=== PATIENT | male | born 1990 | race Caucasian/White ===

== ENCOUNTER 2016-10-30 16:38 | Inpatient (IN) | payer SELFPAY ==
--- NOTE | 2016-10-30 17:27 | EDPHY ---
H & P Stated Complaint: Flu like sxs ~ 10 days;productive cough - Personal History Current Tetanus Diphtheria and Acellular Pertussis (TDAP): Yes - Medical/Surgical History Hx Asthma: No Hx Chronic Respiratory Disease: No Hx Diabetes: No Hx Cardiac Disease: No Hx Renal Disease: No Hx Cirrhosis: No Hx Alcoholism: No Hx HIV/AIDS: No Hx Splenectomy or Spleen Trauma: No Other PMH: add, anxiety - Social History Smoking Status: Current every day smoker Time Seen by Provider: 10/30/16 17:08 HPI/ROS: CHIEF COMPLAINT: " I feel like shit", 10 days of URI symptoms HISTORY OF PRESENT ILLNESS: 26-year-old male history of IV and oral heroin use , no primary care provider, complaining of 10 days productive cough, fever, chills, myalgias, sore throat, dyspnea. No medical evaluation. No abdominal pain. No nausea or vomiting. No rash. No influenza vaccination. PRIMARY CARE PROVIDER:none REVIEW OF SYSTEMS: A ten point review of systems was performed and is negative with the exception of the items mentioned in the HPI PAST MEDICAL & SURGICAL HISTORY: No pertinent medical or surgical history SOCIAL HISTORY: history of IV and oral heroin use, last used approximately 5 hours ago PHYSICAL EXAM (Prior to examination, patient consented to physical exam, hands were washed and my usual and customary physical exam procedures followed) 1) GENERAL: Well-developed, well-nourished, alert and oriented. Appears to be in no acute distress. 2) HEAD: Normocephalic, atraumatic 3) HEENT: Pupils equal, round, reactive to light bilaterally. Sclera anicteric. Nasopharynx, oropharynx, clear, no lesions. No tonsillar enlargement tonsillar exudates Ears bilaterally with normal tympanic membranes. 4) NECK: Full range of motion, no meningeal signs. 5) LUNGS: bibasilar rales, no retractions or accessory muscle use . 6) HEART: Regular rate and rhythm, blowing holosystolic murmur . 7) ABDOMEN: No guarding, no rebound, no focal tenderness,, 8) MUSCULOSKELETAL: Moving all extremities, no focal areas of tenderness, no obvious trauma. No peripheral edema or discoloration. 9) BACK: No CVA tenderness. 10) SKIN: No rash, no petechiae. 11) Psychiatric: Patient is oriented X 3, there is no agitation. DIFFERENTIAL DIAGNOSIS: in no particular distress and a limited to pneumonia, sepsis, endocarditis (Brynn Katz) Constitutional: Initial Vital Signs Temperature (C) 37.7 C 10/30/16 16:41 Heart Rate 93 10/30/16 16:41 Respiratory Rate 20 10/30/16 16:41 Blood Pressure 108/60 10/30/16 16:41 O2 Sat (%) 84 L 10/30/16 16:41 O2 Delivery Mode Room Air O2 (L/minute) 2 Allergies/Adverse Reactions: Penicillins Allergy (Unknown, Verified 10/30/16 16:50) "bad reaction" Home Medications: Medication Instructions Recorded Vitamin B Complex [B Complex] 1 each PO DAILY 10/30/16 Acetaminophen [Tylenol 325mg (*)] 650 mg PO Q4HRS PRN #0 tab 11/01/16 Oseltamivir Phosphate [Tamiflu 75 75 mg PO BIDMEAL #4 cap 11/01/16 mg (*)] guaiFENesin [Mucinex 600 MG (*)] 1,200 mg PO BID tab.er 11/01/16 levOFLOXACIN [levAQUIN (*)] 750 mg PO DAILY #5 tab 11/01/16 Medical Decision Making - Diagnostics Imaging Results: Images reviewed by myself (Brynn Katz) ED Course/Re-evaluation: 5:35 p.m.: Discussed case with secondary to superimposition Dr. Lamar Pang. Patient with URI symptoms, bibasilar rales, bilateral pneumonia on chest x- ray and saturations of 84% on room air, currently 94% on 2 L of oxygen. Recommended admission, IV antibiotics which he is agreeable with. 5:50 p.m.: Consultation with Dr. Jarek Agee hospitalist who will admit patient . Patient also seen and examined by secondary supervising physician Dr. Lamar Pang (Brynn Katz) Other Provider: I have evaluated and participated in the management of this patient. My co- signature indicates that I have reviewed this chart and that I agree with the findings and the plan of care as documented. My personal history and physical findings include: 26-year-old with history of IV drug abuse who presents with 2 days of cough and chest pain. Pulse oximetry was 84% on room air. At the time of my evaluation he was on 2 L nasal cannula with oxygen saturations in the low 90s. He was not febrile or tachypneic. Heart has a regular rate and rhythm. Lungs have coarse rhonchi throughout. Abdomen is soft and nontender, no masses. Bilateral upper extremity track thomson. Right posterior lateral neck with a 1 cm diameter scabbed area ringed with erythema, no fluctuance. Awake, alert, moving all extremities spontaneously in easily. Chest x-ray shows bilateral multilobar infiltrates. He received IV Levaquin. Blood cultures have been obtained. (Lamra Pang) - Data Points Laboratory Results: Laboratory Results 10/31/16 08:58 10/31/16 08:58 Microbiology Results: MICROBIOLOGY 10/30/16 21:15 Sputum, Expectorated - Final 10/30/16 21:15 Sputum, Expectorated Sputum Culture - Final 10/30/16 17:30 Blood Blood Culture - Preliminary 10/30/16 17:38 Blood Blood Culture - Preliminary Medications Given: Discontinued Medications Acetaminophen (Tylenol) 650 mg PO Q4HRS PRN PRN Reason: Pain, Mild/Fever, Can Take PO Stop: 04/28/17 18:49 Last Admin: 10/30/16 23:29 Dose: 650 mg Albuterol/Ipratropium (Duoneb) 3 ml IH EDNOW ONE Stop: 10/30/16 17:32 Last Admin: 10/30/16 17:58 Dose: 3 ml Albuterol/Ipratropium (Duoneb) 3 ml IH QID ALONZO Stop: 04/28/17 20:59 Last Admin: 11/01/16 05:39 Dose: Not Given Enoxaparin Sodium (Lovenox) 40 mg SC DAILY [facility] Stop: 04/29/17 15:59 Last Admin: 11/01/16 07:40 Dose: Not Given Guaifenesin (Mucinex) 1,200 mg PO BID [facility] Stop: 04/28/17 20:59 Last Admin: 11/01/16 07:38 Dose: 1,200 mg Levofloxacin/Dextrose (Levaquin 750 Mg (Premix)) 150 mls @ 100 mls/hr IV DAILY ALONZO PRN Reason: Protocol Stop: 11/29/16 17:59 Last Admin: 10/30/16 18:00 Dose: 150 mls Levofloxacin/Dextrose (Levaquin 750 Mg (Premix)) 150 mls @ 100 mls/hr IV DAILY@ 1800 ALONZO PRN Reason: Protocol Stop: 11/30/16 17:59 Last Admin: 10/31/16 17:58 Dose: 150 mls Sodium Chloride (Ns) 1,000 mls @ 3,000 mls/hr IV ONCE ONE Stop: 10/30/16 23:54 Last Admin: 10/30/16 23:50 Dose: 1,000 mls Oseltamivir Phosphate (Tamiflu) 75 mg PO BIDMEAL ALONZO Stop: 11/04/16 08:01 Last Admin: 11/01/16 07:39 Dose: 75 mg Oxycodone HCl (Oxycodone Ir) 10 - 15 mg PO Q3HRS PRN PRN Reason: Pain, Severe Able to Take PO Stop: 11/09/16 18:49 Last Admin: 11/01/16 10:48 Dose: 10 mg Departure - Departure Disposition: [facility] Inpatient Acute Clinical Impression: Heroin abuse Pneumonia Qualifiers: Pneumonia type: due to other aerobic Gram-negative bacteria Laterality: bilateral Lung location: lower lobe of lung Qualified Code(s): J15.6 - Pneumonia due to other aerobic Gram-negative bacteria Condition: Fair
[2016-10-30] MEDS ORDERED: IPRATROPIUM/ALBUTEROL 3 ML DEYVIAL IH ONE (17:31)
[2016-10-30 17:47] LABS: % IMMATURE GRANULYOCYTES 0.8 % (0.0-1.1); ABSOLUTE IMMATURE GRANULOCYTES 0.06 10^3/uL (0.00-0.10); ADD DIFF? NO; ADD MORPH? NO; ADD SCAN? YES; FRAGMENT RBC FLAG 0 (0-99); HEMATOCRIT 40.7 % (40.0-51.0); HEMOGLOBIN 14.3 g/dL (13.7-17.5); LIPEMIA HEMOLYSIS FLAG 90 (0-99); MEAN CELL HEMOGLOBIN 31.1 pg (27.9-34.1); MEAN CELL HEMOGLOBIN CONCENTR. 35.1 g/dL (32.4-36.7); MEAN CELL VOLUME 88.5 fL (81.5-99.8); MEAN PLATELET VOLUME 10.4 fL (8.7-11.7); PLATELET CLUMPS FLAG 0 (0-99); PLATELET COUNT 151 10^3/uL (150-400); RED CELL DISTRIBUTION WIDTH 12.3 % (11.5-15.2)
[2016-10-30 17:48] LABS: ATYPICAL LYMPHOCYTE FLAG 120 (0-99); LEFT SHIFT FLG 230 (0-99)
[2016-10-30 18:01] LABS: ANION GAP 11 mEq/L (8-16); BILIRUBIN,TOTAL 1.9 mg/dL (0.1-1.4); CALCIUM 8.7 mg/dL (8.5-10.4); CARBON DIOXIDE 27 mEq/l (22-31); CHLORIDE 92 mEq/L (97-110); CREATININE 1.1 mg/dL (0.7-1.3); GLOMERULAR FILTRATION RATE > 60; GLUCOSE 99 mg/dL (70-100); SODIUM 130 mEq/L (134-144)
[2016-10-30] MEDS ORDERED: ONDANSETRON 4 MG/2 ML VIAL IVP PRN (18:50)
[2016-10-30] MEDS ORDERED: ACETAMINOPHEN 325 MG TAB PO PRN (18:50)
[2016-10-30] MEDS ORDERED: ONDANSETRON DISINTEGRATING 4 MG TAB PO PRN (18:50)
[2016-10-30] MEDS ORDERED: NS 1,000 ML IV SCH (19:00)
[2016-10-30 19:07] LABS: SCAN POSITIVE
[2016-10-30 19:12] LABS: PLATELET ESTIMATE ADEQUATE (ADEQ)
[2016-10-30 19:17] LABS: POLYCHROMASIA 1+
--- NOTE | 2016-10-30 19:22 | GHP ---
[f rep st] HISTORY AND PHYSICAL DATE OF ADMISSION: 10/30/2016 CHIEF COMPLAINT: Cough. HISTORY OF PRESENT ILLNESS: This is a 26-year-old man who is addicted to opioids, who presents with a cough. Says he has been sick for about 10 days. All of his friends are also sick. Got very much worse about 3 days ago, and acutely worse today. He has felt somewhat short of breath. He has had diffuse myalgias. He has had some fevers. He thinks the symptoms were worsened when he had to walk about 5 miles in the [facility]. PAST MEDICAL/SURGICAL HISTORY: 1. Opiate abuse, currently not using IV opiates. 2. Believes he has hepatitis C. MEDICATIONS: Please see medication reconciliation. ALLERGIES: Penicillin. SOCIAL HISTORY: Uses IV drugs. FAMILY HISTORY: His father was an alcoholic. REVIEW OF SYSTEMS: 10-point review of systems is conducted and is negative except per HPI. PHYSICAL EXAM: VITAL SIGNS: Blood pressure 108/60, heart rate 93, respiration rate 20, saturating initially 94% on room air. Temperature is 37.7. GENERAL: The patient is a pleasant man who appears mildly uncomfortable, otherwise, in no acute distress. HEENT: Normocephalic, atraumatic. CARDIOVASCULAR: Regular rate and rhythm. No murmurs, rubs, or gallops. PULMONARY: Diffuse rhonchi with some mild expiratory wheezes as well as some crackles. ABDOMEN: Soft, nontender, nondistended. SKIN: No rash. : No [place]. NEUROLOGIC: Alert and oriented x3. He is moving all extremities. PSYCHIATRIC: Normal mood and affect. LABS: CBC is currently pending. Lactate is 1.4. Sodium is 130. DATA: 1. I discussed with Chad Rios, we will admit to med/surg. 2. I personally viewed and interpreted his chest x-ray. This shows a diffuse multifocal pneumonia. IMPRESSION AND PLAN: A 26-year-old man with opiate addiction, presents with a pneumonia. 1. Pneumonia: Community-acquired. He may have aspirated, given his overall history. White count is currently pending. He was hypoxic on presentation. Agree with Levaquin as written in the ED. Also, we will add albuterol, Mucinex. Check an influenza PCR. 2. Hypoxia: Suspect due to pneumonia. If does not resolve, would consider CT angiogram. 3. Opiate addiction: Says he has been eating heroin recently, not using it IV. Provide him with oxycodone for now to prevent him from getting sick. He is interested in cessation. 4. Suspected hepatitis C: He plans to get outpatient treatment. /[id number]/MODL MTDD
[2016-10-30] MEDS: oxyCODONE IR 5 MG TAB PO PRN ×2 (20:25→23:52)
[2016-10-30] MEDS: guaiFENesin 600 MG TAB.ER PO SCH (20:26)
[2016-10-30] MEDS: IPRATROPIUM/ALBUTEROL 3 ML DEYVIAL IH SCH (20:58)
[2016-10-30] MEDS ORDERED: NS 1,000 ML IV ONE (23:35)
[2016-10-31] MEDS: OSELTAMIVIR PHOSPHATE 75 MG CAP PO SCH ×3 (01:07→17:58)
[2016-10-31] MEDS: oxyCODONE IR 5 MG TAB PO PRN ×6 (03:56→22:47)
[2016-10-31] MEDS: IPRATROPIUM/ALBUTEROL 3 ML DEYVIAL IH SCH ×4 (06:01→22:09)
[2016-10-31] MEDS: guaiFENesin 600 MG TAB.ER PO SCH ×2 (08:30→20:26)
[2016-10-31 09:14] LABS: % IMMATURE GRANULYOCYTES 0.9 % (0.0-1.1); ABSOLUTE IMMATURE GRANULOCYTES 0.06 10^3/uL (0.00-0.10); ADD DIFF? NO; ADD MORPH? NO; ADD SCAN? YES; FRAGMENT RBC FLAG 0 (0-99); HEMATOCRIT 42.1 % (40.0-51.0); HEMOGLOBIN 14.4 g/dL (13.7-17.5); LIPEMIA HEMOLYSIS FLAG 90 (0-99); MEAN CELL HEMOGLOBIN 30.5 pg (27.9-34.1); MEAN CELL HEMOGLOBIN CONCENTR. 34.2 g/dL (32.4-36.7); MEAN CELL VOLUME 89.2 fL (81.5-99.8); MEAN PLATELET VOLUME 10.9 fL (8.7-11.7); PLATELET CLUMPS FLAG 10 (0-99); PLATELET COUNT 141 10^3/uL (150-400); RED BLOOD CELL COUNT 4.72 10^6/uL (4.40-6.38); RED CELL DISTRIBUTION WIDTH 12.4 % (11.5-15.2)
[2016-10-31 09:24] LABS: ATYPICAL LYMPHOCYTE FLAG 180 (0-99); LEFT SHIFT FLG 100 (0-99)
[2016-10-31 09:26] LABS: ALANINE AMINOTRANSFERASE 36 IU/L (21-72); ALBUMIN 3.3 g/dL (3.5-5.0); ALKALINE PHOSPHATASE 51 IU/L (38-126); ANION GAP 11 mEq/L (8-16); ASPARTATE AMINOTRANSFERASE 32 IU/L (17-59); BILIRUBIN,TOTAL 1.5 mg/dL (0.1-1.4); CALCIUM 8.2 mg/dL (8.5-10.4); CARBON DIOXIDE 21 mEq/l (22-31); CHLORIDE 105 mEq/L (97-110); CREATININE 0.8 mg/dL (0.7-1.3); GLOMERULAR FILTRATION RATE > 60; GLUCOSE 99 mg/dL (70-100); POTASSIUM 4.5 mEq/L (3.5-5.2); SODIUM 137 mEq/L (134-144); TOTAL PROTEIN 6.2 g/dL (6.3-8.2)
[2016-10-31 09:45] LABS: SCAN POSITIVE
[2016-10-31 09:48] LABS: PLATELET ESTIMATE DECREASED (ADEQ)
--- NOTE | 2016-10-31 13:05 | HOSPPROG ---
Hospitalist Progress Note Assessment/Plan: 26y male with c/o sob. This is my first encounter. Chart reviewed. #PNA multifactorial possible aspiration and CAP cont IV abx therapy #Fever bc pending #Flu supportive care #IVDA cont po support #Hyponatremia resolved with hydration #Dispo unclear, change to inpt status requiring further supportive care Subjective: Feeling very tired and weak. Still coughing. Objective: Vital Signs Temp Pulse Resp BP Pulse Ox 36.8 C 95 18 93/53 L 92 10/31/16 11:21 10/31/16 11:21 10/31/16 11:21 10/31/16 11:21 10/31/16 11:21 Microbiology 10/30/16 21:15 - Final Sputum, Expectorated Laboratory Results 10/31/16 08:58 10/31/16 08:58 10/30/16 10/31/16 11/01/16 05:59 05:59 05:59 Intake Total 250 Balance 250 - Physical Exam Constitutional: chronically ill appearing, uncomfortable, cachectic Eyes: PERRL, anicteric sclera, EOMI Ears, Nose, Mouth, Throat: moist mucous membranes, hearing normal, ears appear normal Cardiovascular: No JVD, No tachycardia, No edema Respiratory: no respiratory distress, reduced air movement, rhonchi Gastrointestinal: No tenderness, No ascites, No guarding Skin: warm, normal color, No induration Musculoskeletal: no joint effusions, muscular tenderness, generalized weakness Neurologic: AAOx3 Psychiatric: not anxious, not encephalopathic, poor insight, poor judgement ICD10 Worksheet Patient Problems: Problems Problem Status Onset Polysubstance abuse Acute Altered mental state Acute Pneumonia Acute Heroin abuse Acute
[2016-10-31] MEDS: ENOXAPARIN 40 MG/0.4 ML SYR SC SCH (17:57)
[2016-11-01] MEDS: oxyCODONE IR 5 MG TAB PO PRN ×3 (02:50→10:48)
[2016-11-01] MEDS: IPRATROPIUM/ALBUTEROL 3 ML DEYVIAL IH SCH (05:39)
[2016-11-01 07:27] VITALS: BP 110/6; PULSE 57; RESP 20; TEMP 97.9; O2SAT 91
[2016-11-01] MEDS: guaiFENesin 600 MG TAB.ER PO SCH (07:38)
[2016-11-01] MEDS: OSELTAMIVIR PHOSPHATE 75 MG CAP PO SCH (07:39)
[2016-11-01] MEDS: ENOXAPARIN 40 MG/0.4 ML SYR SC SCH (07:40)
--- NOTE | 2016-11-02 11:33 | GDS ---
[f rep st] DISCHARGE SUMMARY DISCHARGE DIAGNOSES: 1. Influenza. 2. Community-acquired pneumonia. 3. Fever. 4. History of intravenous drug abuse. 5. Hyponatremia. 6. Dehydration. PHYSICAL EXAM: GENERAL: The patient was alert. VITAL SIGNS: Afebrile at 36.6, pulse 57, respiratory rate 20, blood pressure was 110/60. He was saturating 91% on room air. I saw and evaluated the arlen ent on the day of discharge. HOSPITAL COURSE: The patient is a 26-year-old male who presented to the emergency room with complai nts of shortness of breath. He was evaluated and diagnosed with: 1. Community-acquired pneumonia. During this hospitalization, he was treated with IV antibiotic the rapy. He was provided a prescription that was filled for him at this hospital for Levaquin 750 mg da carlos to be continued at the time of disposition. 2. Influenza B. The patient was treated with Tamiflu during this hospital course and was provided a prescription for the remaining doses of Tamiflu. 3. Fever. Blood cultures were preliminarily negative. His fever completely resolved. 4. History of IV drug abuse. The patient was offered social work and supportive care during this ho spitalization. 5. Hyponatremia. This was likely secondary to dehydration. He responded well to IV fluids, and this condition has resolved. DISPOSITION: The patient will be discharged home independently. PENDING STUDIES: None. FOLLOWUP: [facility]. DISCHARGE MEDICATIONS: Again, he was provided a prescription for Levaquin prior to disposition. I spent greater than 35 minutes in the care, coordination, and management of the patient's discharge . /[id number]/MODL
== END 2016-11-01 10:50 | disposition home or self-care (01) | DRG 194 ==
LOC: F3E 19:59 → OBSVTOIN 10-31 13:07
PROVIDERS: ADMIT Student in an Organized Health Care Education/Training Program; ATTEND Student in an Organized Health Care Education/Training Program
DX: J18.9 Pneumonia, unspecified organism (principal); J10.00 Influenza due to other identified influenza virus with unspecified type of pneumonia; R09.02 Hypoxemia; E87.1 Hypo-osmolality and hyponatremia; E86.0 Dehydration; B19.20 Unspecified viral hepatitis C without hepatic coma; F17.210 Nicotine dependence, cigarettes, uncomplicated; F11.20 Opioid dependence, uncomplicated
CPT/HCPCS: 96374; G0378; J1650; J1956

== ENCOUNTER 2017-01-12 02:26 | Emergency (ER) | payer OTHER, MEDICAID ==
--- NOTE | 2017-01-12 02:31 | EDPHY ---
H & P HPI/ROS: HPI The patient presents brought in by ambulance from the residential where he has been incarcerated for the last 5 hours approximately. The patient has hypotension with altered mental status. He was found to be unresponsive at the residential at approximately 1:00 a.m. on rounds. He then became combative and was diaphoretic and cold. He had a blood pressure checked initially was 60 systolic , then 80 systolic. He complains now that he is feeling cold but has no other complaints. He has a history of IV heroin abuse, methamphetamine abuse, admission for multi lobar pneumonia. REVIEW OF SYSTEMS Constitutional: No fever, no chills. Eyes: No discharge. ENT: No sore throat. Cardiovascular: No chest pain, no palpitations. Respiratory: No cough, no shortness of breath. Gastrointestinal: No abdominal pain, no vomiting. Genitourinary: No hematuria. Musculoskeletal: No back pain. Skin: No rashes. Neurological: No headache. PMHx: Multilobar pneumonia Soc Hx: IV heroin use PHYSICAL General Appearance: Alert, no distress Eyes: Pupils equal and round no pallor or injection ENT, Mouth: Mucous membranes moist Respiratory: There are no retractions, lungs are clear to auscultation Cardiovascular: Regular rate and rhythm Gastrointestinal: Abdomen is soft and non-tender, no masses, bowel sounds normal Neurological: A&O, moves all extremities Skin: Warm and dry, no rashes Musculoskeletal: Neck is supple non tender Extremities: symmetrical, full range of motion Psychiatric: Patient is oriented X 3, there is no agitation Source: Patient, EMS, Old records - Medical/Surgical History Hx Asthma: No Hx Chronic Respiratory Disease: No Hx Diabetes: No Hx Cardiac Disease: No Hx Renal Disease: No Hx Cirrhosis: No Hx Alcoholism: No Hx HIV/AIDS: No Hx Splenectomy or Spleen Trauma: No Other PMH: add, anxiety - Social History Smoking Status: Current every day smoker Constitutional: Initial Vital Signs Temperature (C) 36.5 C 01/12/17 02:30 Heart Rate 64 01/12/17 02:30 Respiratory Rate 16 01/12/17 02:30 Blood Pressure 80/53 L 01/12/17 02:30 O2 Sat (%) 100 01/12/17 02:30 O2 Delivery Mode Room Air Allergies/Adverse Reactions: Penicillins Allergy (Unknown, Verified 01/12/17 02:38) "bad reaction" Home Medications: Medication Instructions Recorded Fluoxetine HCl [Prozac 40 mg] 80 mg PO 01/12/17 QUEtiapine FUMARATE [Seroquel 100 150 mg PO DAILY 01/12/17 mg (*)] Medical Decision Making Procedures: Procedure: Ultrasound guidance for IV placement. Indication: The nurse requested that I place an intravenous catheter because of technical difficulties with this procedure on this patient. Procedure in details: Using the linear probe covered in a sterile sheath, a short axis of the left internal jugular vein was obtained. This vein was completely compressible and was identified as separate from the adjacent noncompressible arterial structure. Under real-time guidance, the intravenous needle was observed to tent the vein and then to puncture it. Insertion of intravenous catheter: I prepped the patient's skin with chlorhexidine. I placed an 18 gauge intravenous catheter in the visualized vein. Differential Diagnosis: This is a 26-year-old male with history of heroin abuse and methamphetamine abuse who presents from residential with an episode of combativeness and noted to be hypotensive. Here, his blood pressures in the 80s systolic and he is mentating well. His heart rate is normal and he is not hypothermic or febrile. Differential diagnosis includes dehydration, drug intoxication, less likely sepsis. In the emergency department, labs were checked and were unremarkable except for urine toxicology positive for multiple substances. He was given 3 L of IV fluid and felt well. His blood pressures did remain in the 80s to 90s systolic, however he was completely asymptomatic. He did not develop a fever. White blood cell count is normal. I feel he can be discharged to the residential. - Data Points Laboratory Results: Laboratory Results 01/12/17 03:10 01/12/17 03:10 01/12/17 01/12/17 01/12/17 04:30 03:10 03:10 WBC 9.92 10^3/uL H 10^3/uL (3.80-9.50) RBC 5.03 10^6/uL 10^6/uL (4.40-6.38) Hgb 14.7 g/dL g/dL (13.7-17.5) Hct 42.5 % % (40.0-51.0) MCV 84.5 fL fL (81.5-99.8) MCH 29.2 pg pg (27.9-34.1) MCHC 34.6 g/dL g/dL (32.4-36.7) RDW 13.5 % % (11.5-15.2) Plt Count 252 10^3/uL 10^3/uL (150-400) MPV 9.9 fL fL (8.7-11.7) Neut % (Auto) 78.9 % H % (39.3-74.2) Lymph % (Auto) 12.9 % L % (15.0-45.0) [place] % (Auto) 7.6 % % (4.5-13.0) Eos % (Auto) 0.1 % L % (0.6-7.6) Baso % (Auto) 0.1 % L % (0.3-1.7) Nucleat RBC Rel Count 0.0 % % (0.0-0.2) Absolute Neuts (auto) 7.83 10^3/uL H 10^3/uL (1.70-6.50) Absolute Lymphs (auto) 1.28 10^3/uL 10^3/uL (1.00-3.00) Absolute Monos (auto) 0.75 10^3/uL 10^3/uL (0.30-0.80) Absolute Eos (auto) 0.01 10^3/uL L 10^3/uL (0.03-0.40) Absolute Basos (auto) 0.01 10^3/uL L 10^3/uL (0.02-0.10) Absolute Nucleated RBC 0.00 10^3/uL 10^3/uL (0-0.01) Immature Gran % 0.4 % % (0.0-1.1) Immature Gran # 0.04 10^3/uL 10^3/uL (0.00-0.10) Sodium 140 mEq/L mEq/L (134-144) Potassium 3.8 mEq/L mEq/L (3.5-5.2) Chloride 105 mEq/L mEq/L (97-110) Carbon Dioxide 22 mEq/l mEq/l (22-31) Anion Gap 13 mEq/L mEq/L (8-16) BUN 20 mg/dL mg/dL (7-23) Creatinine 1.0 mg/dL mg/dL (0.7-1.3) Estimated GFR > 60 Glucose 81 mg/dL mg/dL (70-100) Calcium 10.3 mg/dL mg/dL (8.5-10.4) Total Bilirubin 1.1 mg/dL mg/dL (0.1-1.4) AST 66 IU/L H IU/L (17-59) ALT 84 IU/L H IU/L (21-72) Alkaline Phosphatase 52 IU/L IU/L (38-126) Creatine Kinase 101 IU/L IU/L (0-224) Total Protein 8.0 g/dL g/dL (6.3-8.2) Albumin 4.2 g/dL g/dL (3.5-5.0) Urine Opiates Screen NON-NEGATIVE H (NEGATIVE) Urine Barbiturates NEGATIVE (NEGATIVE) Ur Phencyclidine Scrn NEGATIVE (NEGATIVE) Ur Amphetamine Screen NON-NEGATIVE H (NEGATIVE) U Benzodiazepines Scrn NEGATIVE (NEGATIVE) Urine Cocaine Screen NEGATIVE (NEGATIVE) U Marijuana (THC) Screen NON-NEGATIVE H (NEGATIVE) Ethyl Alcohol < 10 mg/dL mg/dL (0-10) Medications Given: Discontinued Medications Sodium Chloride (Ns) 1,000 mls @ 0 mls/hr IV ONCE ONE; Wide Open PRN Reason: Protocol Stop: 01/12/17 02:35 Last Admin: 01/12/17 02:40 Dose: 1,000 mls Sodium Chloride (Ns) 1,000 mls @ 0 mls/hr IV ONCE ONE PRN Reason: Wide Open Stop: 01/12/17 03:44 Last Admin: 01/12/17 03:44 Dose: 1,000 mls Sodium Chloride (Ns) 1,000 mls @ 0 mls/hr IV ONCE ONE PRN Reason: Wide Open Stop: 01/12/17 04:31 Last Admin: 01/12/17 04:30 Dose: 1,000 mls Departure - Departure Disposition: Home, Routine, Self-Care Clinical Impression: Heroin abuse Hypotension Qualifiers: Hypotension type: unspecified hypotension type Qualified Code(s): I95.9 - Hypotension, unspecified Altered mental state Qualifiers: Altered mental status type: delirium Qualified Code(s): R41.0 - Disorientation , unspecified Condition: Good Instructions: Hypotension (ED) Additional Instructions: Please make sure to drink plenty of fluids and check your blood pressure regularly. Referrals: [facility] [Outside] - As per Instructions
[2017-01-12] MEDS ORDERED: NS 1,000 ML IV ONE ×3 (02:34→04:30)
[2017-01-12 02:38] VITALS: RESP 16; TEMP 97.7; O2SAT 100
[2017-01-12 03:19] LABS: % IMMATURE GRANULYOCYTES 0.4 % (0.0-1.1); ABSOLUTE IMMATURE GRANULOCYTES 0.04 10^3/uL (0.00-0.10); ADD DIFF? NO; ADD MORPH? NO; ADD SCAN? NO; ATYPICAL LYMPHOCYTE FLAG 10 (0-99); FRAGMENT RBC FLAG 0 (0-99); HEMATOCRIT 42.5 % (40.0-51.0); HEMOGLOBIN 14.7 g/dL (13.7-17.5); LEFT SHIFT FLG 0 (0-99); LIPEMIA HEMOLYSIS FLAG 90 (0-99); MEAN CELL HEMOGLOBIN 29.2 pg (27.9-34.1); MEAN CELL HEMOGLOBIN CONCENTR. 34.6 g/dL (32.4-36.7); MEAN CELL VOLUME 84.5 fL (81.5-99.8); MEAN PLATELET VOLUME 9.9 fL (8.7-11.7); PLATELET CLUMPS FLAG 0 (0-99); PLATELET COUNT 252 10^3/uL (150-400); RED BLOOD CELL COUNT 5.03 10^6/uL (4.40-6.38); RED CELL DISTRIBUTION WIDTH 13.5 % (11.5-15.2)
[2017-01-12 03:36] LABS: ALANINE AMINOTRANSFERASE 84 IU/L (21-72); ALBUMIN 4.2 g/dL (3.5-5.0); ALKALINE PHOSPHATASE 52 IU/L (38-126); ANION GAP 13 mEq/L (8-16); ASPARTATE AMINOTRANSFERASE 66 IU/L (17-59); BILIRUBIN,TOTAL 1.1 mg/dL (0.1-1.4); CALCIUM 10.3 mg/dL (8.5-10.4); CARBON DIOXIDE 22 mEq/l (22-31); CHLORIDE 105 mEq/L (97-110); ETHANOL SERUM < 10 mg/dL (0-10); GLOMERULAR FILTRATION RATE > 60; GLUCOSE 81 mg/dL (70-100); POTASSIUM 3.8 mEq/L (3.5-5.2); SODIUM 140 mEq/L (134-144)
[2017-01-12 05:59] VITALS: BP 98/56; PULSE 74
== END 2017-01-12 06:00 | disposition home or self-care (01) ==
LOC: EDUNIT#
PROC: 05HN33Z Insertion of Infusion Device into Left Internal Jugular Vein, Percutaneous Approach (ICD-10-PCS; principal; 2017-01-12)
DX: I95.9 Hypotension, unspecified (principal); F11.10 Opioid abuse, uncomplicated; R41.0 Disorientation, unspecified; F17.200 Nicotine dependence, unspecified, uncomplicated; Z88.0 Allergy status to penicillin
CPT/HCPCS: 80305; G0480

== ENCOUNTER 2018-12-08 19:25 | Emergency (ER) | payer MEDICAID, OTHER | END 2018-12-08 19:59 | disposition home or self-care (01) ==